=== PATIENT | female | born 1995 | race African-American/Black ===

== ENCOUNTER 2017-12-13 22:10 | Emergency (ER) | payer OTHER ==
[~2017-12-13] VITALS: Ht 162.6 cm; Wt 64.0 kg
[2017-12-13] MEDS ORDERED: FAMOTIDINE 20MG/2ML VIAL IV STA (22:31)
[2017-12-13] MEDS ORDERED: SODIUM CHLORIDE 0.9% 1,000 ML IV ONE (22:31)
[2017-12-13] MEDS ORDERED: ONDANSETRON HCL 4MG/2ML INJ IV STA (22:31)
[2017-12-13] MEDS ORDERED: MAGNESIUM/ALUMINUM HYDROXIDE/SIMETHICONE 30ML UDC PO STA (22:31)
[2017-12-13] MEDS ORDERED: ACETAMINOPHEN 325MG TABLET PO STA (22:31)
[2017-12-13] MEDS ORDERED: BUTORPHANOL TARTRATE 2 MG/ML VIAL IM ONE (22:45)
[2017-12-13] MEDS ORDERED: IPRATROPIUM/ALBUTEROL 0.5-3(2.5)MG/3ML NEB HHN ONE (22:45)
[2017-12-13 23:21] LABS: BASOPHILS % 0.8 % (0.0-2.0); EOSINOPHILS % 1.3 % (0.0-5.0); HEMATOCRIT. 35.6 % (36.0-48.0); HEMOGLOBIN. 12.1 g/dL (12.0-16.0); LYMPHOCYTES % 29.9 % (20.0-50.0); MEAN CORPUSCULAR HEMOGLOBIN 30.3 pg (28.0-32.0); MEAN CORPUSCULAR VOLUME 89.3 fL (81.0-99.0); MEAN PLATELET VOLUME 9.8 fl (7.4-10.4); MONOCYTES % 7.7 % (2.0-8.0); NEUTROPHILS % 60.3 % (40.0-76.0); PLATELET 208 x1000/uL (130-400); RED BLOOD CELL COUNT 3.98 mill/uL (4.2-5.4); RED CELL DISTRIBUTION WIDTH 13.1 % (11.6-14.6)
[2017-12-13 23:24] LABS: CHLORIDE 103 mEq/L (98-107); INR 1.1; PROTHROMBIN TIME 10.7 sec (9.1-11.1)
[2017-12-14 00:16] LABS: CLARITY URINE CLEAR (CLEAR); COLOR URINE YELLOW (YELLOW); KETONES URINE NEGATIVE (NEGATIVE); LEUKOCYTE ESTERASE URINE 1+ (NEGATIVE); NITRITE URINE NEGATIVE (NEGATIVE); OCCULT BLOOD URINE NEGATIVE (NEGATIVE); PH URINE 6.5 (4.5-8.0); PROTEIN URINE NEGATIVE (NEGATIVE); UROBILINOGEN URINE 0.2 E.U./dL (0.2-1.0)
[2017-12-14 00:49] VITALS: BP 110/63
== END 2017-12-14 01:15 | disposition home or self-care (01) ==
LOC: ER 22:35
DX: O23.42 Unspecified infection of urinary tract in pregnancy, second trimester (principal); O99.412 Diseases of the circulatory system complicating pregnancy, second trimester; R07.89 Other chest pain; O99.612 Diseases of the digestive system complicating pregnancy, second trimester; K29.70 Gastritis, unspecified, without bleeding; Z3A.20 20 weeks gestation of pregnancy; Z88.2 Allergy status to sulfonamides
CPT/HCPCS: 36415; 80053; 81003; 83690; 84484; 85025; 85610; 94640; 96361; 96374; 96375; 99285; J2405; J3490; J7030; J7620; Z7610; J0595